=== PATIENT | female | born 1985 | race Caucasian/White ===

== ENCOUNTER 2017-12-31 21:11 | Inpatient (IN) | payer OTHER ==
[~2017-12-31] VITALS: Ht 167.6 cm; Wt 54.8 kg
[2018-01-01] MEDS ORDERED: MORPHINE SULFATE 4 MG/ML, 1ML IVPush PRN
[2018-01-01 00:22] LABS: MEAN CORPUSCULAR HEMOGLOBIN 29.1 pg (27.0-34.8); MEAN CORPUSCULAR HGB CONC 33.8 g/dL (32.4-35.8); MEAN CORPUSCULAR VOLUME 86.2 fL (80-100); MEAN PLATELET VOLUME 8.4 fL (7.4-10.4); PLATELET COUNT 264 x10^3/uL (130-400); RED BLOOD COUNT 3.08 x10^6/uL (3.82-5.3); RED CELL DISTRIBUTION WIDTH 12.6 % (9.6-15.2)
[2018-01-01] MEDS ORDERED: PLEASE ENTER ALLERGIES MC SCH (00:30)
[2018-01-01 00:33] LABS: ALANINE AMINOTRANSFERASE 23 U/L (12-78); ALBUMIN 2.3 g/dL (3.4-5.0); ANION GAP 10 mmol/L (5-15); CALCIUM 7.9 mg/dL (8.5-10.1); CHLORIDE 107 mmol/L (98-107); CREATININE 0.41 mg/dL (0.55-1.02)
[2018-01-01 00:36] LABS: ALKALINE PHOSPHATASE 95 U/L (45-117); BILIRUBIN,TOTAL 0.4 mg/dL (0.2-1.0); TOTAL PROTEIN 6.9 g/dL (6.4-8.2)
[2018-01-01 00:51] LABS: BASOPHILS # (AUTO) 0.11 x10^3/uL (0-0.1); BASOPHILS % (AUTO) 1 % (0-1); EOSINOPHILS # (AUTO) 0.02 x10^3/uL (0-0.4); EOSINOPHILS % (AUTO) 0 % (1-7); LYMPHOCYTES # (AUTO) 1.97 x10^3/uL (1-3.4); LYMPHOCYTES % (AUTO) 9 % (22-44); MD SCAN; MONOCYTES # (AUTO) 0.88 x10^3/uL (0.2-0.8); MONOCYTES % (AUTO) 4 % (2-9); NEUTROPHILS # (AUTO) 19.11 x10^3/uL (1.8-6.8); NEUTROPHILS % (AUTO) 87 % (42-75)
[2018-01-01] MEDS ORDERED: PIPERACILLIN/TAZO/PMX 3.375GM 50 ML IV SCH (01:30)
[2018-01-01 01:45] VITALS: BP 100/62
[2018-01-01 06:55] VITALS: BP 104/69
[2018-01-01] MEDS ORDERED: BUPIVACAINE/PF 0.5% ONE (07:06)
[2018-01-01] MEDS ORDERED: EPINEPHRINE 1 MG/ML, 1ML ONE (07:06)
[2018-01-01] MEDS ORDERED: CEFOTETAN PMX 2GM/50ML 0 ML ONE (07:16)
[2018-01-01] MEDS ORDERED: SUCCINYLCHOLINE 20 MG/ML, 10ML ONE (07:16)
[2018-01-01] MEDS ORDERED: ROCURONIUM 10MG/ML,5ML ONE (07:16)
[2018-01-01] MEDS ORDERED: PROPOFOL 10 MG/ML, 20ML ONE (07:16)
[2018-01-01] MEDS ORDERED: FENTANYL PF 250 MCG/5ML ONE (07:20)
[2018-01-01] MEDS ORDERED: MIDAZOLAM 1 MG/ML, 2ML ONE (07:21)
[2018-01-01] MEDS ORDERED: METOPROLOL 1 MG/ML, 5ML IV PRN (07:30)
[2018-01-01] MEDS ORDERED: ONDANSETRON 2MG/ML, 2ML IVPush PRN ×3 (07:30→10:00)
[2018-01-01] MEDS ORDERED: EPHEDRINE 50 MG/ML, 1ML IVPush PRN (07:30)
[2018-01-01] MEDS ORDERED: LABETALOL 5MG/ML, 20ML IV PRN (07:30)
[2018-01-01] MEDS ORDERED: FENTANYL PF 100 MCG/2ML IV PRN (07:30)
[2018-01-01] MEDS ORDERED: ACETAMINOPHEN 325 MG TABLET PO PRN (07:30)
[2018-01-01] MEDS ORDERED: OXYcodone 5 MG/5 ML ORAL.SOL UDC PO PRN (07:30)
[2018-01-01] MEDS ORDERED: ALBUTEROL SULFATE 2.5 MG/3 ML NPPB PRN (07:30)
[2018-01-01] MEDS ORDERED: MEPERIDINE/PF 25MG/0.5ML IVPush PRN (07:30)
[2018-01-01] MEDS ORDERED: hydrALAzine 20 MG/ML, 1ML IV PRN (07:30)
[2018-01-01] MEDS ORDERED: morphine SULFATE 10 MG/ML, 1ML IV PRN (07:30)
[2018-01-01 08:21] LABS: AMPHETAMINE SCREEN, URINE Negative (Negative); BARBITURATE SCREEN, URINE Negative (Negative); BENZODIAZEPINE SCREEN, URINE Negative (Negative); CANNABINOID SCREEN, URINE Negative (Negative); COCAINE SCREEN, URINE Negative (Negative); METHADONE SCREEN, URINE Negative (Negative); OPIATE SCREEN, URINE Negative (Negative)
[2018-01-01] MEDS ORDERED: DEXAMETHASONE 4 MG/ML, 1ML ONE (08:49)
[2018-01-01] MEDS ORDERED: ONDANSETRON 2MG/ML, 2ML ONE (08:50)
[2018-01-01] MEDS ORDERED: PROPOFOL 100 ML IV ONE (09:40)
[2018-01-01] MEDS ORDERED: POTASSIUM CHLORIDE 20 MEQ in D5%-0.45% NACL 1,000 ML IV SCH (09:40)
[2018-01-01] MEDS ORDERED: LABETALOL 5MG/ML, 20ML IVPush SCH (10:00)
[2018-01-01] MEDS ORDERED: LIDOCAINE-MPF 1%, 2ML ENDO PRN (10:00)
[2018-01-01] MEDS ORDERED: SENNOSIDES 8.8 MG/5 ML ORAL SOL NG PRN (10:00)
[2018-01-01] MEDS ORDERED: LACTULOSE 20 GM/30 ML UDC NG PRN (10:00)
[2018-01-01] MEDS: SODIUM CHLORIDE 0.9% 1,000 ML IV SCH ×2 (10:00→16:41)
[2018-01-01] MEDS ORDERED: PHARMACY MAY ADJ FOR RENAL FX MC SCH ×2 (10:00)
[2018-01-01] MEDS ORDERED: FENTANYL PF 100 MCG/2ML ONE (10:14)
[2018-01-01] MEDS: FENTANYL PF 100 MCG/2ML IVPush PRN ×3 (10:25→13:38)
[2018-01-01] MEDS: DIPHENHYDRAMINE 50 MG/ML, 1ML IV PRN (10:25)
[2018-01-01] MEDS: PIPERACILLIN/TAZO/PMX 3.375GM 50 ML IV SCH ×3 (12:39→22:00)
[2018-01-01] MEDS: OXYcodone/APAP 5/325MG TABLET PO PRN ×2 (14:06→18:10)
[2018-01-02] MEDS: OXYcodone/APAP 5/325MG TABLET PO PRN ×6 (00:46→23:58)
[2018-01-02] MEDS: PIPERACILLIN/TAZO/PMX 3.375GM 50 ML IV SCH ×4 (04:10→22:21)
[2018-01-02 04:22] VITALS: BP 103/61
[2018-01-02 04:40] LABS: O2 FLOW ROOM AIR L/min
[2018-01-02 04:43] LABS: MEAN CORPUSCULAR HEMOGLOBIN 29.5 pg (27.0-34.8); MEAN CORPUSCULAR HGB CONC 34.1 g/dL (32.4-35.8); MEAN CORPUSCULAR VOLUME 86.5 fL (80-100); MEAN PLATELET VOLUME 8.4 fL (7.4-10.4); PLATELET COUNT 231 x10^3/uL (130-400); RED BLOOD COUNT 2.91 x10^6/uL (3.82-5.3); RED CELL DISTRIBUTION WIDTH 12.8 % (9.6-15.2)
[2018-01-02 04:52] LABS: ALANINE AMINOTRANSFERASE 23 U/L (12-78); ANION GAP 9 mmol/L (5-15); CALCIUM 8.2 mg/dL (8.5-10.1); CHLORIDE 110 mmol/L (98-107); CREATININE 0.45 mg/dL (0.55-1.02)
[2018-01-02 04:54] LABS: ALKALINE PHOSPHATASE 109 U/L (45-117); BILIRUBIN,TOTAL 0.3 mg/dL (0.2-1.0); TOTAL PROTEIN 6.4 g/dL (6.4-8.2)
[2018-01-02 05:40] LABS: BASOPHILS # (AUTO) 0.01 x10^3/uL (0-0.1); BASOPHILS % (AUTO) 0 % (0-1); EOSINOPHILS % (AUTO) 0 % (1-7); LYMPHOCYTES # (AUTO) 1.21 x10^3/uL (1-3.4); LYMPHOCYTES % (AUTO) 5 % (22-44); MD SCAN; MONOCYTES % (AUTO) 2 % (2-9); NEUTROPHILS # (AUTO) 24.35 x10^3/uL (1.8-6.8); NEUTROPHILS % (AUTO) 93 % (42-75)
[2018-01-02 11:15] LABS: MEAN CORPUSCULAR HEMOGLOBIN 29.4 pg (27.0-34.8); MEAN CORPUSCULAR HGB CONC 33.9 g/dL (32.4-35.8); MEAN CORPUSCULAR VOLUME 86.7 fL (80-100); MEAN PLATELET VOLUME 8.2 fL (7.4-10.4); PLATELET COUNT 275 x10^3/uL (130-400); RED CELL DISTRIBUTION WIDTH 12.9 % (9.6-15.2)
[2018-01-02 11:32] LABS: MD YES
[2018-01-02 11:39] LABS: LYMPH#(MANUAL) 0.83 x10^3/uL (1-3.4); LYMPHS% (MANUAL) 3 % (22-44); MONOS#(MANUAL) 0.56 x10^3/uL (0.3-2.7); MONOS% (MANUAL) 2 % (2-9)
[2018-01-02 11:45] LABS: BAND#(MANUAL) 2.78 x10^3/uL; BANDS%(MANUAL) 10 % (0-7); SEG#(MANUAL) 23.63 x10^3/uL (1.8-6.8); SEGS% (MANUAL) 85 % (42-75)
[2018-01-02 11:47] LABS: <PLATELET ESTIMATE> ADEQUATE; <PLT MORPHOLOGY> NORMAL PLT MORPH; <RBC MORPHOLOGY> NORMAL; PMNS WITH VACUOLES 1+
[2018-01-02] MEDS: SENNA/DOCUSATE TABLET NG PRN (11:56)
[2018-01-02] MEDS: ACETAMINOPHEN 325 MG TABLET PO PRN (13:10)
[2018-01-02 15:05] VITALS: BP 116/67
[2018-01-02 21:16] VITALS: BP 111/66
[2018-01-03 00:01] VITALS: BP 106/99
[2018-01-03] MEDS: PIPERACILLIN/TAZO/PMX 3.375GM 50 ML IV SCH ×4 (04:00→21:54)
[2018-01-03] MEDS: OXYcodone/APAP 5/325MG TABLET PO PRN ×4 (04:00→19:32)
[2018-01-03 04:10] VITALS: BP 116/69
[2018-01-03 05:13] LABS: MEAN CORPUSCULAR HEMOGLOBIN 29.8 pg (27.0-34.8); MEAN CORPUSCULAR HGB CONC 34.1 g/dL (32.4-35.8); MEAN CORPUSCULAR VOLUME 87.2 fL (80-100); MEAN PLATELET VOLUME 8.1 fL (7.4-10.4); PLATELET COUNT 256 x10^3/uL (130-400); RED BLOOD COUNT 3.14 x10^6/uL (3.82-5.3); RED CELL DISTRIBUTION WIDTH 12.5 % (9.6-15.2)
[2018-01-03 05:26] LABS: ANION GAP 8 mmol/L (5-15); CALCIUM 7.7 mg/dL (8.5-10.1); CHLORIDE 104 mmol/L (98-107)
[2018-01-03 05:28] LABS: CREATININE 0.47 mg/dL (0.55-1.02)
[2018-01-03 06:22] LABS: MD YES
[2018-01-03 06:40] LABS: BANDS%(MANUAL) 14 % (0-7); LYMPH#(MANUAL) 0.57 x10^3/uL (1-3.4); LYMPHS% (MANUAL) 2 % (22-44); SEG#(MANUAL) 24.02 x10^3/uL (1.8-6.8); SEGS% (MANUAL) 84 % (42-75)
[2018-01-03 06:41] LABS: <RBC MORPHOLOGY> NORMAL
[2018-01-03 06:45] LABS: <PLATELET ESTIMATE> ADEQUATE; <PLT MORPHOLOGY> NORMAL PLT MORPH
[2018-01-03 06:47] LABS: TOXIC GRAN 1+
[2018-01-03 07:36] VITALS: BP 110/65
[2018-01-03 13:08] VITALS: BP 107/69
[2018-01-03 19:44] VITALS: BP 123/72
[2018-01-03] MEDS: SENNA/DOCUSATE TABLET NG PRN (22:15)
[2018-01-04 01:53] VITALS: BP 112/70
[2018-01-04] MEDS: PIPERACILLIN/TAZO/PMX 3.375GM 50 ML IV SCH ×4 (04:04→22:33)
[2018-01-04] MEDS: OXYcodone/APAP 5/325MG TABLET PO PRN ×7 (04:07→23:39)
[2018-01-04 05:44] LABS: ANION GAP 9 mmol/L (5-15); CALCIUM 8.3 mg/dL (8.5-10.1); CHLORIDE 101 mmol/L (98-107)
[2018-01-04 05:47] LABS: CREATININE 0.42 mg/dL (0.55-1.02); MEAN CORPUSCULAR HEMOGLOBIN 30.3 pg (27.0-34.8); MEAN CORPUSCULAR HGB CONC 34.2 g/dL (32.4-35.8); MEAN CORPUSCULAR VOLUME 88.3 fL (80-100); MEAN PLATELET VOLUME 8.3 fL (7.4-10.4); PLATELET COUNT 253 x10^3/uL (130-400); RED BLOOD COUNT 3.28 x10^6/uL (3.82-5.3); RED CELL DISTRIBUTION WIDTH 12.6 % (9.6-15.2)
[2018-01-04 06:50] LABS: MD YES
[2018-01-04 06:52] LABS: BAND#(MANUAL) 3.44 x10^3/uL; BANDS%(MANUAL) 16 % (0-7); LYMPH#(MANUAL) 0.43 x10^3/uL (1-3.4); LYMPHS% (MANUAL) 2 % (22-44); MONOS#(MANUAL) 0.43 x10^3/uL (0.3-2.7); MONOS% (MANUAL) 2 % (2-9); SEGS% (MANUAL) 80 % (42-75)
[2018-01-04 06:54] LABS: <PLATELET ESTIMATE> ADEQUATE; <PLT MORPHOLOGY> NORMAL PLT MORPH; <RBC MORPHOLOGY> NORMAL; TOXIC GRAN 1+
[2018-01-04 06:55] VITALS: BP 108/69
[2018-01-04 11:24] VITALS: BP 104/74
[2018-01-04] MEDS: ONDANSETRON ODT 4 MG PO PRN ×2 (11:25→16:39)
[2018-01-04 13:34] VITALS: BP 113/70
[2018-01-04] MEDS: BISACODYL 10 MG SUPP PR PRN (16:39)
[2018-01-04] MEDS: BISACODYL 10 MG SUPP PR SCH (16:46)
[2018-01-04] MEDS: MORPHINE SULFATE 4 MG/ML, 1ML IVPush PRN ×2 (16:52→21:37)
[2018-01-04 17:47] LABS: MEAN CORPUSCULAR HEMOGLOBIN 29.5 pg (27.0-34.8); MEAN CORPUSCULAR HGB CONC 33.8 g/dL (32.4-35.8); MEAN CORPUSCULAR VOLUME 87.3 fL (80-100); MEAN PLATELET VOLUME 8.1 fL (7.4-10.4); PLATELET COUNT 293 x10^3/uL (130-400); RED BLOOD COUNT 3.44 x10^6/uL (3.82-5.3); RED CELL DISTRIBUTION WIDTH 12.6 % (9.6-15.2)
[2018-01-04 18:11] LABS: MD YES
[2018-01-04 18:13] LABS: BAND#(MANUAL) 6.95 x10^3/uL; BANDS%(MANUAL) 36 % (0-7); LYMPH#(MANUAL) 0.58 x10^3/uL (1-3.4); LYMPHS% (MANUAL) 3 % (22-44); SEG#(MANUAL) 11.77 x10^3/uL (1.8-6.8); SEGS% (MANUAL) 61 % (42-75)
[2018-01-04 18:14] LABS: <PLATELET ESTIMATE> ADEQUATE; <PLT MORPHOLOGY> NORMAL PLT MORPH; <RBC MORPHOLOGY> NORMAL; TOXIC GRAN 1+
[2018-01-04] MEDS ORDERED: MAGNESIUM HYDROXIDE 8%, 30ML UDC ONE (18:25)
[2018-01-04] MEDS: MAGNESIUM HYDROXIDE 8%, 30ML UDC PO SCH (18:34)
[2018-01-04 19:19] VITALS: BP 113/70
[2018-01-05] MEDS: DIPHENHYDRAMINE 50 MG/ML, 1ML IV PRN ×2 (00:17→04:36)
[2018-01-05] MEDS: ONDANSETRON 2MG/ML, 2ML IVPush PRN ×2 (02:13→07:35)
[2018-01-05] MEDS: MORPHINE SULFATE 4 MG/ML, 1ML IVPush PRN (02:13)
[2018-01-05 02:37] VITALS: BP 114/75
[2018-01-05] MEDS: PIPERACILLIN/TAZO/PMX 3.375GM 50 ML IV SCH ×4 (04:36→22:08)
[2018-01-05 05:23] LABS: MEAN CORPUSCULAR HEMOGLOBIN 29.3 pg (27.0-34.8); MEAN CORPUSCULAR HGB CONC 34.1 g/dL (32.4-35.8); MEAN CORPUSCULAR VOLUME 85.9 fL (80-100); PLATELET COUNT 352 x10^3/uL (130-400); RED BLOOD COUNT 3.76 x10^6/uL (3.82-5.3); RED CELL DISTRIBUTION WIDTH 12.6 % (9.6-15.2)
[2018-01-05 05:31] LABS: ANION GAP 11 mmol/L (5-15); CALCIUM 8.9 mg/dL (8.5-10.1); CHLORIDE 97 mmol/L (98-107)
[2018-01-05 05:32] LABS: CREATININE 0.49 mg/dL (0.55-1.02)
[2018-01-05 06:02] LABS: MD YES
[2018-01-05 06:03] LABS: BAND#(MANUAL) 1.25 x10^3/uL; BANDS%(MANUAL) 6 % (0-7); LYMPH#(MANUAL) 0.83 x10^3/uL (1-3.4); LYMPHS% (MANUAL) 4 % (22-44); MONOS#(MANUAL) 0.21 x10^3/uL (0.3-2.7); MONOS% (MANUAL) 1 % (2-9); SEG#(MANUAL) 18.51 x10^3/uL (1.8-6.8); SEGS% (MANUAL) 89 % (42-75)
[2018-01-05 06:04] LABS: POLYCHROMASIA 1+
[2018-01-05 06:05] LABS: <PLATELET ESTIMATE> ADEQUATE; <PLT MORPHOLOGY> NORMAL PLT MORPH
[2018-01-05 07:42] VITALS: BP 123/72
[2018-01-05] MEDS: SENNA/DOCUSATE TABLET NG PRN (11:19)
[2018-01-05] MEDS: BISACODYL 10 MG SUPP PR PRN (11:19)
[2018-01-05 13:29] VITALS: BP 128/85
[2018-01-05] MEDS: D5%-0.45NACL+KCL 40MEQ 1,000 ML IV SCH ×2 (13:57→23:02)
[2018-01-05 19:15] VITALS: BP 118/77
[2018-01-05] MEDS: MAGNESIUM HYDROXIDE 8%, 30ML UDC PO SCH (20:40)
[2018-01-06 03:00] VITALS: BP 106/66
[2018-01-06] MEDS: PIPERACILLIN/TAZO/PMX 3.375GM 50 ML IV SCH ×4 (04:23→22:59)
[2018-01-06 05:35] LABS: MEAN CORPUSCULAR HEMOGLOBIN 29.1 pg (27.0-34.8); MEAN CORPUSCULAR HGB CONC 33.6 g/dL (32.4-35.8); MEAN CORPUSCULAR VOLUME 86.6 fL (80-100); MEAN PLATELET VOLUME 7.6 fL (7.4-10.4); PLATELET COUNT 361 x10^3/uL (130-400); RED BLOOD COUNT 3.39 x10^6/uL (3.82-5.3)
[2018-01-06 05:43] LABS: ANION GAP 8 mmol/L (5-15); CALCIUM 8.2 mg/dL (8.5-10.1); CHLORIDE 103 mmol/L (98-107); CREATININE 0.64 mg/dL (0.55-1.02)
[2018-01-06] MEDS: OXYcodone/APAP 5/325MG TABLET PO PRN ×4 (05:46→19:43)
[2018-01-06 05:53] LABS: MD YES
[2018-01-06 05:54] LABS: BAND#(MANUAL) 0.37 x10^3/uL; BANDS%(MANUAL) 2 % (0-7); LYMPH#(MANUAL) 1.67 x10^3/uL (1-3.4); LYMPHS% (MANUAL) 9 % (22-44); MONOS#(MANUAL) 0.37 x10^3/uL (0.3-2.7); MONOS% (MANUAL) 2 % (2-9); SEGS% (MANUAL) 87 % (42-75)
[2018-01-06 05:55] LABS: POLYCHROMASIA 1+
[2018-01-06 05:56] LABS: <PLATELET ESTIMATE> ADEQUATE; <PLT MORPHOLOGY> NORMAL PLT MORPH
[2018-01-06 08:19] VITALS: BP 123/87
[2018-01-06] MEDS: BISACODYL 10 MG SUPP PR SCH (09:51)
[2018-01-06] MEDS: D5%-0.45NACL+KCL 40MEQ 1,000 ML IV SCH ×2 (11:01→22:59)
[2018-01-06 12:14] VITALS: BP 104/70
[2018-01-06] MEDS: SENNA/DOCUSATE TABLET NG PRN (12:18)
[2018-01-06] MEDS: SIMETHICONE 125 MG CHEW TAB PO SCH ×2 (12:18→18:12)
[2018-01-06 13:07] LABS: MEAN CORPUSCULAR HEMOGLOBIN 29.1 pg (27.0-34.8); MEAN CORPUSCULAR HGB CONC 33.9 g/dL (32.4-35.8); MEAN PLATELET VOLUME 7.4 fL (7.4-10.4); PLATELET COUNT 353 x10^3/uL (130-400); RED BLOOD COUNT 3.32 x10^6/uL (3.82-5.3); RED CELL DISTRIBUTION WIDTH 12.9 % (9.6-15.2)
[2018-01-06 13:36] LABS: BASOPHILS # (AUTO) 0.02 x10^3/uL (0-0.1); BASOPHILS % (AUTO) 0 % (0-1); EOSINOPHILS # (AUTO) 0.06 x10^3/uL (0-0.4); EOSINOPHILS % (AUTO) 0 % (1-7); LYMPHOCYTES # (AUTO) 1.19 x10^3/uL (1-3.4); LYMPHOCYTES % (AUTO) 7 % (22-44); MD SCAN; MONOCYTES # (AUTO) 0.71 x10^3/uL (0.2-0.8); MONOCYTES % (AUTO) 4 % (2-9); NEUTROPHILS # (AUTO) 14.77 x10^3/uL (1.8-6.8); NEUTROPHILS % (AUTO) 88 % (42-75)
[2018-01-06 19:11] VITALS: BP 119/70
[2018-01-06] MEDS: MAGNESIUM HYDROXIDE 8%, 30ML UDC PO SCH (21:00)
[2018-01-07] MEDS: OXYcodone/APAP 5/325MG TABLET PO PRN ×5 (01:14→21:33)
[2018-01-07 01:20] VITALS: BP 109/70
[2018-01-07] MEDS: PIPERACILLIN/TAZO/PMX 3.375GM 50 ML IV SCH ×4 (04:07→22:05)
[2018-01-07 05:29] LABS: ANION GAP 8 mmol/L (5-15); BASOPHILS # (AUTO) 0.04 x10^3/uL (0-0.1); BASOPHILS % (AUTO) 0 % (0-1); CALCIUM 8.1 mg/dL (8.5-10.1); CHLORIDE 107 mmol/L (98-107); CREATININE 0.37 mg/dL (0.55-1.02); EOSINOPHILS # (AUTO) 0.14 x10^3/uL (0-0.4); EOSINOPHILS % (AUTO) 1 % (1-7); LYMPHOCYTES # (AUTO) 1.38 x10^3/uL (1-3.4); LYMPHOCYTES % (AUTO) 10 % (22-44); MD NO; MEAN CORPUSCULAR HEMOGLOBIN 28.8 pg (27.0-34.8); MEAN CORPUSCULAR HGB CONC 33.1 g/dL (32.4-35.8); MEAN CORPUSCULAR VOLUME 86.8 fL (80-100); MEAN PLATELET VOLUME 7.6 fL (7.4-10.4); MONOCYTES % (AUTO) 6 % (2-9); NEUTROPHILS # (AUTO) 12.04 x10^3/uL (1.8-6.8); NEUTROPHILS % (AUTO) 84 % (42-75); PLATELET COUNT 314 x10^3/uL (130-400); RED BLOOD COUNT 2.92 x10^6/uL (3.82-5.3); RED CELL DISTRIBUTION WIDTH 12.9 % (9.6-15.2)
[2018-01-07 07:39] VITALS: BP 114/76
[2018-01-07] MEDS: SIMETHICONE 125 MG CHEW TAB PO SCH ×4 (08:02→20:19)
[2018-01-07] MEDS: BISACODYL 10 MG SUPP PR SCH (10:14)
[2018-01-07] MEDS: D5%-0.45NACL+KCL 40MEQ 1,000 ML IV SCH (13:04)
[2018-01-07 15:32] VITALS: BP 110/68
[2018-01-07 19:30] VITALS: BP 112/73
[2018-01-07] MEDS: MAGNESIUM HYDROXIDE 8%, 30ML UDC PO SCH (20:19)
[2018-01-08] MEDS: D5%-0.45NACL+KCL 40MEQ 1,000 ML IV SCH ×2 (01:38→16:00)
[2018-01-08 02:00] VITALS: BP 115/69
[2018-01-08] MEDS: SENNA/DOCUSATE TABLET NG PRN (03:13)
[2018-01-08] MEDS: OXYcodone/APAP 5/325MG TABLET PO PRN ×3 (03:13→12:17)
[2018-01-08] MEDS: PIPERACILLIN/TAZO/PMX 3.375GM 50 ML IV SCH ×4 (04:16→22:31)
[2018-01-08 05:27] LABS: CHLORIDE 107 mmol/L (98-107)
[2018-01-08 05:38] LABS: ANION GAP 9 mmol/L (5-15); CALCIUM 8.3 mg/dL (8.5-10.1); CREATININE 0.38 mg/dL (0.55-1.02)
[2018-01-08 05:42] LABS: BASOPHILS # (AUTO) 0.01 x10^3/uL (0-0.1); BASOPHILS % (AUTO) 0 % (0-1); EOSINOPHILS # (AUTO) 0.11 x10^3/uL (0-0.4); EOSINOPHILS % (AUTO) 1 % (1-7); LYMPHOCYTES % (AUTO) 9 % (22-44); MD NO; MEAN CORPUSCULAR HGB CONC 34.3 g/dL (32.4-35.8); MEAN CORPUSCULAR VOLUME 87.3 fL (80-100); MEAN PLATELET VOLUME 7.9 fL (7.4-10.4); MONOCYTES # (AUTO) 0.77 x10^3/uL (0.2-0.8); MONOCYTES % (AUTO) 4 % (2-9); NEUTROPHILS % (AUTO) 86 % (42-75); PLATELET COUNT 328 x10^3/uL (130-400); RED BLOOD COUNT 2.97 x10^6/uL (3.82-5.3); RED CELL DISTRIBUTION WIDTH 12.8 % (9.6-15.2)
[2018-01-08] MEDS: SIMETHICONE 125 MG CHEW TAB PO SCH ×3 (07:35→17:58)
[2018-01-08 07:40] VITALS: BP 113/74
[2018-01-08] MEDS: BISACODYL 10 MG SUPP PR SCH (09:00)
[2018-01-08] MEDS: MAGNESIUM HYDROXIDE 8%, 30ML UDC PO SCH (12:21)
[2018-01-08 14:49] VITALS: BP 114/73
[2018-01-08] MEDS: ACETAMINOPHEN 325 MG TABLET PO PRN ×2 (16:01→20:39)
[2018-01-08 19:29] VITALS: BP 120/78
[2018-01-09] MEDS: ACETAMINOPHEN 325 MG TABLET PO PRN ×5 (00:46→18:34)
[2018-01-09 01:00] VITALS: BP 112/68
[2018-01-09] MEDS: PIPERACILLIN/TAZO/PMX 3.375GM 50 ML IV SCH ×4 (04:34→22:17)
[2018-01-09 05:20] LABS: INTERNATIONAL NORMALIZED RATIO 0.96 (0.93-1.1); PROTHROMBIN TIME 9.9 Seconds (9.6-11.5)
[2018-01-09 05:22] LABS: BASOPHILS # (AUTO) 0.04 x10^3/uL (0-0.1); BASOPHILS % (AUTO) 0 % (0-1); EOSINOPHILS # (AUTO) 0.14 x10^3/uL (0-0.4); EOSINOPHILS % (AUTO) 1 % (1-7); LYMPHOCYTES # (AUTO) 1.36 x10^3/uL (1-3.4); LYMPHOCYTES % (AUTO) 9 % (22-44); MD NO; MEAN CORPUSCULAR HEMOGLOBIN 29.7 pg (27.0-34.8); MEAN CORPUSCULAR HGB CONC 34.1 g/dL (32.4-35.8); MEAN CORPUSCULAR VOLUME 87.2 fL (80-100); MEAN PLATELET VOLUME 8.1 fL (7.4-10.4); MONOCYTES # (AUTO) 0.69 x10^3/uL (0.2-0.8); MONOCYTES % (AUTO) 4 % (2-9); NEUTROPHILS # (AUTO) 13.69 x10^3/uL (1.8-6.8); NEUTROPHILS % (AUTO) 86 % (42-75); PLATELET COUNT 413 x10^3/uL (130-400); RED BLOOD COUNT 3.26 x10^6/uL (3.82-5.3); RED CELL DISTRIBUTION WIDTH 12.8 % (9.6-15.2)
[2018-01-09 05:26] LABS: CHLORIDE 105 mmol/L (98-107)
[2018-01-09 05:38] LABS: ANION GAP 9 mmol/L (5-15); CALCIUM 8.9 mg/dL (8.5-10.1); CREATININE 0.49 mg/dL (0.55-1.02)
[2018-01-09 06:41] VITALS: BP 117/75
[2018-01-09] MEDS: BISACODYL 10 MG SUPP PR SCH (09:00)
[2018-01-09] MEDS: SIMETHICONE 125 MG CHEW TAB PO SCH ×3 (09:22→18:34)
[2018-01-09] MEDS: D5%-0.45NACL+KCL 40MEQ 1,000 ML IV SCH ×3 (10:10→16:00)
[2018-01-09 13:31] VITALS: BP 122/74
[2018-01-09] MEDS: ONDANSETRON ODT 4 MG PO PRN (18:33)
[2018-01-09 19:20] VITALS: BP 118/69
[2018-01-09] MEDS: MAGNESIUM HYDROXIDE 8%, 30ML UDC PO SCH (20:41)
[2018-01-10 02:37] VITALS: BP 106/64
[2018-01-10] MEDS: ACETAMINOPHEN 325 MG TABLET PO PRN ×5 (02:40→21:52)
[2018-01-10] MEDS: PIPERACILLIN/TAZO/PMX 3.375GM 50 ML IV SCH ×4 (04:11→23:16)
[2018-01-10 04:52] LABS: MEAN CORPUSCULAR HEMOGLOBIN 29.4 pg (27.0-34.8); MEAN CORPUSCULAR HGB CONC 33.8 g/dL (32.4-35.8); MEAN PLATELET VOLUME 8.1 fL (7.4-10.4); PLATELET COUNT 429 x10^3/uL (130-400); RED BLOOD COUNT 3.11 x10^6/uL (3.82-5.3)
[2018-01-10 05:01] LABS: ANION GAP 10 mmol/L (5-15); CALCIUM 8.2 mg/dL (8.5-10.1); CHLORIDE 107 mmol/L (98-107)
[2018-01-10 05:48] LABS: BASOPHILS # (AUTO) 0.08 x10^3/uL (0-0.1); BASOPHILS % (AUTO) 1 % (0-1); EOSINOPHILS # (AUTO) 0.14 x10^3/uL (0-0.4); EOSINOPHILS % (AUTO) 1 % (1-7); LYMPHOCYTES % (AUTO) 10 % (22-44); MONOCYTES # (AUTO) 0.71 x10^3/uL (0.2-0.8); MONOCYTES % (AUTO) 4 % (2-9); NEUTROPHILS # (AUTO) 14.54 x10^3/uL (1.8-6.8); NEUTROPHILS % (AUTO) 85 % (42-75)
[2018-01-10 05:49] LABS: MD SCAN
[2018-01-10 07:04] VITALS: BP 125/74
[2018-01-10] MEDS: D5%-0.45NACL+KCL 40MEQ 1,000 ML IV SCH (08:00)
[2018-01-10] MEDS: SIMETHICONE 125 MG CHEW TAB PO SCH ×3 (08:49→17:17)
[2018-01-10] MEDS: BISACODYL 10 MG SUPP PR SCH (08:50)
[2018-01-10 13:37] VITALS: BP 126/73
[2018-01-10 19:20] VITALS: BP 130/66
[2018-01-10] MEDS: MAGNESIUM HYDROXIDE 8%, 30ML UDC PO SCH (21:56)
[2018-01-11 01:16] VITALS: BP 110/65
[2018-01-11] MEDS: ACETAMINOPHEN 325 MG TABLET PO PRN ×3 (03:30→12:29)
[2018-01-11 04:58] LABS: BASOPHILS # (AUTO) 0.07 x10^3/uL (0-0.1); BASOPHILS % (AUTO) 0 % (0-1); EOSINOPHILS # (AUTO) 0.14 x10^3/uL (0-0.4); EOSINOPHILS % (AUTO) 1 % (1-7); LYMPHOCYTES # (AUTO) 1.93 x10^3/uL (1-3.4); LYMPHOCYTES % (AUTO) 11 % (22-44); MD NO; MEAN CORPUSCULAR HEMOGLOBIN 30.2 pg (27.0-34.8); MEAN CORPUSCULAR HGB CONC 34.5 g/dL (32.4-35.8); MEAN CORPUSCULAR VOLUME 87.6 fL (80-100); MEAN PLATELET VOLUME 8.2 fL (7.4-10.4); MONOCYTES % (AUTO) 5 % (2-9); NEUTROPHILS # (AUTO) 13.93 x10^3/uL (1.8-6.8); NEUTROPHILS % (AUTO) 83 % (42-75); PLATELET COUNT 453 x10^3/uL (130-400); RED BLOOD COUNT 3.02 x10^6/uL (3.82-5.3); RED CELL DISTRIBUTION WIDTH 13.1 % (9.6-15.2)
[2018-01-11] MEDS: PIPERACILLIN/TAZO/PMX 3.375GM 50 ML IV SCH ×2 (05:04→11:00)
[2018-01-11 05:11] LABS: ANION GAP 7 mmol/L (5-15); CALCIUM 7.9 mg/dL (8.5-10.1); CHLORIDE 108 mmol/L (98-107)
[2018-01-11 06:49] VITALS: BP 96/52
[2018-01-11] MEDS: SIMETHICONE 125 MG CHEW TAB PO SCH (08:38)
[2018-01-11] MEDS: BISACODYL 10 MG SUPP PR SCH (08:38)
[2018-01-11] MEDS ORDERED: AMOX1TAB61 PO (10:54)
[2018-01-11] MEDS ORDERED: SIME125C67 PO (10:55)
[2018-01-11] MEDS ORDERED: ACET650T59 PO (10:56)
[2018-01-11 11:12] VITALS: BP 113/74
== END 2018-01-11 12:52 | disposition home or self-care (01) | DRG 781 ==
LOC: ED 23:59 → EDIP 01-01 00:57 → 4NOR 01-01 01:35 → CCU 01-01 09:40 → 4NOR 01-02 14:48 → DCLOUNGE 01-11 12:38
PROVIDERS: ADMIT Surgery; ATTEND Surgery
PROC: 3E1M38Z Irrigation of Peritoneal Cavity using Irrigating Substance, Percutaneous Approach (ICD-10-PCS; 2018-01-01)
PROC: 0DTJ4ZZ Resection of Appendix, Percutaneous Endoscopic Approach (ICD-10-PCS; principal; 2018-01-01 07:30)
DX: O99.612 Diseases of the digestive system complicating pregnancy, second trimester (principal); J96.00 Acute respiratory failure, unspecified whether with hypoxia or hypercapnia; K35.3 Acute appendicitis with localized peritonitis; O99.512 Diseases of the respiratory system complicating pregnancy, second trimester; K59.00 Constipation, unspecified; Z3A.18 18 weeks gestation of pregnancy
CPT/HCPCS: 36415; 36600; 71045; 72195; 74181; 76815; 80048; 80053; 80307; 82803; 83735; 84100; 84478; 85025; 85610; 87070; 87081; 87205; 88304; 94002; 94150; 99285; J0171; J1100; J2250; J2405; J2543; J2704; J3010; J3490; Q0162; J0330; J1200; J3480; J7030; S0074